=== PATIENT | female | born 1950 | race Caucasian/White ===

== ENCOUNTER → 2017-05-01 | Outpatient (CLI) | payer MEDICARE, OTHER ==
--- NOTE | 2017-05-01 10:29 | Diagnostic Imaging Report ---
PROCEDURE: X-RAY CHEST, TWO VIEWS COMPARISON: 12/27/2016. INDICATIONS: PREOPERATIVE CHEST XRAY FOR KNEE SURGERY FINDINGS: Lungs are well-inflated. No consolidation, pleural effusion, or pneumothorax. Calcified mediastinal lymph nodes unchanged. Otherwise unremarkable cardiomediastinal contour. No acute osseous abnormalities. Healed fracture deformity of the midshaft of the left clavicle. [employer] shunt catheter partially visualized. CONCLUSION: No acute cardiopulmonary abnormality. Dictated by: Iker Card M.D. on 05/01/2017 at 10:38 Electronically approved by: Iker Card M.D. on 05/01/2017 at 10:38
== END ==
LOC: RAD 09:33
PROVIDERS: ATTEND Specialist
DX: Z01.818 Encounter for other preprocedural examination (principal)
CPT/HCPCS: 36415; 71020; 82948

== ENCOUNTER → 2018-05-23 | Outpatient (CLI) | payer MEDICARE, OTHER ==
--- NOTE | 2018-05-23 16:30 | Diagnostic Imaging Report ---
EXAMINATION: CHEST 2 VIEWS INDICATION: Chest pain. COMPARISON: None FINDINGS: TUBES and LINES: Partially seen right sided ventriculoperitoneal shunt which courses over the right hemithorax into the right hemiabdomen. No evidence of kinking or discontinuity. LUNGS: Lungs are well inflated. Lungs are clear. There is no evidence of pneumonia or pulmonary edema. PLEURA: No pleural effusion or pneumothorax. HEART AND MEDIASTINUM: The cardiomediastinal silhouette is unremarkable. BONES AND SOFT TISSUES: No acute radiographic abnormality. There are possible old healed left first through fourth rib fracture deformities. UPPER ABDOMEN: No free air under the diaphragm. IMPRESSION: No acute radiographic abnormality. Signed by: Dr. Clifford Stokes MD on 05/23/2018 4:27 PM
== END ==
LOC: RAD 15:45
PROVIDERS: ATTEND Specialist
DX: R07.9 Chest pain, unspecified (principal)
CPT/HCPCS: 71046